=== PATIENT | male | born 1995 | race African-American/Black ===

== ENCOUNTER 2021-05-02 18:24 | Emergency (ER) | payer OTHER ==
[~2021-05-02] VITALS: Ht 177.8 cm; Wt 138.3 kg
[2021-05-02 18:58] LABS: ABSOLUTE NEUTROPHILS 15.3 thou/uL (1.4-8.2); BASOPHILS 0.1 % (0.0-2.0); EOSINOPHILS 0.1 % (0.0-3.0); HEMATOCRIT 39.5 % (42.0-52.0); HEMOGLOBIN 13.8 gm/dL (14.0-18.0); LYMPHOCYTES 12.9 % (24.0-44.0); MCH 27.7 pg (26.0-34.0); MCV 79.3 fL (80.0-100.0); MONOCYTES 5.6 % (1.0-8.0); PLATELET COUNT 240 thou/uL (150-400); POLYS 81.3 % (36.0-66.0); RBC 4.98 mil/uL (4.50-6.00); RDW 14.3 % (10.5-14.5); WBC 18.9 thou/uL (4.0-11.0)
[2021-05-02 19:01] LABS: ALBUMIN 3.3 g/dL (3.4-5.0); CALCIUM 9.3 mg/dL (8.5-10.1); TOTAL PROTEIN 8.8 g/dL (6.4-8.2)
[2021-05-02 19:04] LABS: POTASSIUM 2.8 mmol/L (3.5-5.1)
[2021-05-02 20:17] LABS: URINE BILIRUBIN NEGATIVE (Negative); URINE BLOOD 3+ (Negative); URINE CLARITY CLEAR; URINE COLOR YELLOW; URINE GLUCOSE-RANDOM* NEGATIVE (Negative); URINE KETONES TRACE (Negative); URINE LEUKOCYTES-REFLEX NEGATIVE (Negative); URINE NITRITE-REFLEX NEGATIVE (Negative); URINE PROTEIN (DIPSTICK) TRACE (Negative); URINE SPECIFIC GRAVITY <= 1.005 (1.005-1.035); URINE UROBILINOGEN 0.2 E.U./dl (0.2-1.0)
[2021-05-02 20:30] LABS: CASTS None Seen /LPF (None Seen); SQUAMOUS 0-3 Few /LPF (0-3); URINE WBC-REFLEX 6-15 Few /HPF (0-5)
[2021-05-02 20:31] LABS: BACTERIA-REFLEX 1-9 Few /HPF (None Seen); CRYSTALS None Seen /LPF (None Seen)
[2021-05-02] MEDS ORDERED: LEVOFLOXACIN750 MG PO (20:51)
[2021-05-02 21:26] VITALS: BP 150/93
--- NOTE | 2021-05-03 07:41 | EKG ---
[address] [address] ELECTROCARDIOGRAM REPORT Name: CARMELA LONGORIA 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: : 1995 Requested By: Heri Lew Order Number: [id number] MD: Jonny Rios Measurements Intervals [facility] Rate: 82 P: 59 LA: 158 QRS: 98 QRSD: 102 T: 35 QT: 350 QTc: 409 Interpretive Statements Sinus arrhythmia Consider right atrial enlargement Borderline right axis deviation No previous ECG available for comparison Electronically Signed On 05-03-2021 7:40:56 [employer] by Jonny Rios [email or web address] <ELECTRONICALLY SIGNED> By: Jonny Rios MD, [facility] 05/03/21 0740 [id number] 12 Jonny Rios MD, FACC /EPI
== END 2021-05-02 21:34 | disposition home or self-care (01) ==
LOC: ER 18:24
PROVIDERS: Emergency Medicine; Student in an Organized Health Care Education/Training Program
DX: N39.0 Urinary tract infection, site not specified (principal); E87.6 Hypokalemia; J18.9 Pneumonia, unspecified organism